=== PATIENT | female | born 1975 | race Caucasian/White ===

== ENCOUNTER 2019-11-25 13:15 | Outpatient (CLI) | payer OTHER ==
--- NOTE | 2019-11-25 16:52 | Diagnostic Imaging Report ---
PATIENT MR#: [id number] PATIENT PATIENT NAME: NANY MARRERO DATE OF : 1975 REFERRING PHYSICIAN: Manoj Prieto EXAM DATE: 11/25/2019 ACCESSION NUMBER: [id number] EXAM DESCRIPTION: ABDOMEN 1VIEW HISTORY: Constipation, right flank pain. COMPARISON: No pertinent prior studies are available at this time. ABDOMINAL XRAY, 2 FRONTAL VIEWS: Gallbladder: Cholecystectomy clips. Bowel gas pattern: No evidence of obstruction. The colon is normally distended with gas and stool. Calcifications: No findings to suggest nephrolithiasis by x-ray sensitivity. Skeleton: Status post ORIF right iliac-pubis fracture, with cancellous screw, which is fractured at t he distal threads. However, there is no evidence of refracture of the bony pelvis. IMPRESSION: 1. Normal bowel gas pattern, without obstruction or significant constipation. 2. 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 Read by: Dr. Haja Andrew Transcribed by: Haja Andrew Transcribed Date: 11/25/2019 4:51:51 PM Electronically signed by: Dr. Haja Andrew Date signed: 11/25/2019 4:51:51 PM
== END 2019-11-25 13:25 ==
LOC: LAB 13:15
PROVIDERS: ATTEND Family Medicine
DX: K59.00 Constipation, unspecified (principal); R10.9 Unspecified abdominal pain; F32.9 Major depressive disorder, single episode, unspecified
CPT/HCPCS: 36415; 74018; 80053; 85025